=== PATIENT | male | born 1995 | race Caucasian/White ===

== ENCOUNTER 2023-03-30 21:32 | Emergency (ER) | payer BC ==
[2023-03-30] MEDS ORDERED: Bupivacaine 0.5% 10 ML VIAL ONE (21:51)
== END 2023-03-30 22:52 | disposition home or self-care (01) ==
LOC: ERS 21:32
DX: R55 Syncope and collapse (principal); S01.01XA Laceration without foreign body of scalp, initial encounter; H81.399 Other peripheral vertigo, unspecified ear; W22.8XXA Striking against or struck by other objects, initial encounter; Y93.01 Activity, walking, marching and hiking
CPT/HCPCS: 12001; 36416; 99283; J3490

== ENCOUNTER 2024-12-02 23:30 | Observation (INO) | payer BC ==
[2024-12-03 00:14] LABS: #Basophils 0.03 10x3/uL (0.0-0.2); #Eosinophils 0.03 10x3/uL (0.0-0.7); #Monocytes 0.84 10x3/uL (0.11-0.59); #Neutrophils 11.89 10x3/uL (1.40-6.50); %Basophils 0.2 % (0.0-1.0); %Eosinophils 0.2 % (0.0-10.0); %Lymphocytes 7.2 % (21.0-51.0); %Monocytes 6.1 % (0.0-10.0); %Neutrophils 85.9 % (42.0-75.0); Hematocrit 46.0 % (42.0-52.0); Hemoglobin 15.5 g/dL (14.0-18.0); Mean Corpuscular Hemoglobin 29.0 pg (27.0-31.0); Mean Corpuscular Volume 86.0 fL (78.0-98.0); Platelet Count 211 10x3/uL (130-400); Red Blood Cell (RBC) Count 5.35 mill/uL (4.70-6.10); White Blood Cell (WBC) Count 13.85 10x3/uL (4.8-10.8)
[2024-12-03 00:39] LABS: ALT (SGPT) 12 U/L (Less than 45); AST (SGOT) 16 U/L (11-34); Albumin 5.1 g/dL (3.1-4.5); Alkaline Phosphatase 62 U/L (40-110); Anion Gap 15 mmol/L (10-20); BUN (Urea Nitrogen) 9 mg/dL (8.9-20.6); Bilirubin, Total 0.8 mg/dL (0.3-1.2); Calc. Creatinine Clearance 0 mL/min (70-130); Calcium 9.6 mg/dL (7.8-10.44); Carbon Dioxide 23 mmol/L (22-29); Chloride 104 mmol/L (98-107); Globulin 2.9 g/dL (2.4-3.5); Glucose 117 mg/dL (70-105); Lipase 23 U/L (8-78); Potassium 4.0 mmol/L (3.5-5.1); Sodium 138 mmol/L (136-145)
[2024-12-03] MEDS ORDERED: diphenhydrAMINE 50 MG/ML VIAL ONE (00:54)
[2024-12-03] MEDS ORDERED: Metoclopramide HCl 10 MG (2 mL) VIAL ONE (00:55)
[2024-12-03] MEDS ORDERED: cefTRIAXone (ROCEPHIN) 1 GM VIAL ONE (01:50)
[2024-12-03] MEDS ORDERED: metroNIDAZOLE 500 MG (100 mL) BAG ONE (02:35)
[2024-12-03] MEDS ORDERED: Glucagon 1 MG/ML KIT IM PRN (02:48)
[2024-12-03] MEDS ORDERED: Dextrose 50% Abboject 50 ML SYRINGE SLOW IVP PRN (02:48)
[2024-12-03] MEDS ORDERED: Acetaminophen 325 MG TAB PO PRN (02:48)
[2024-12-03] MEDS ORDERED: Ondansetron PF 4 MG/2 ML Vial IVP PRN (02:48)
[2024-12-03 07:06] LABS: #Basophils Less than 0.03 10x3/uL (0.0-0.2); #Eosinophils Less than 0.03 10x3/uL (0.0-0.7); #Monocytes 0.82 10x3/uL (0.11-0.59); #Neutrophils 10.56 10x3/uL (1.40-6.50); %Basophils 0.1 % (0.0-1.0); %Eosinophils 0.1 % (0.0-10.0); %Lymphocytes 9.2 % (21.0-51.0); %Monocytes 6.5 % (0.0-10.0); %Neutrophils 83.6 % (42.0-75.0); Hematocrit 44.3 % (42.0-52.0); Hemoglobin 15.0 g/dL (14.0-18.0); Mean Corpuscular Hemoglobin 29.1 pg (27.0-31.0); Mean Corpuscular Volume 86.0 fL (78.0-98.0); Platelet Count 193 10x3/uL (130-400); Red Blood Cell (RBC) Count 5.15 mill/uL (4.70-6.10); White Blood Cell (WBC) Count 12.62 10x3/uL (4.8-10.8)
[2024-12-03 08:04] LABS: Carbon Dioxide 22 mmol/L (22-29); Glucose 100 mg/dL (70-105)
[2024-12-03 08:05] LABS: Anion Gap 15 mmol/L (10-20); BUN (Urea Nitrogen) 9 mg/dL (8.9-20.6); Calc. Creatinine Clearance 0 mL/min (70-130)
[2024-12-03 08:07] LABS: Calcium 9.3 mg/dL (7.8-10.44); Chloride 105 mmol/L (98-107); Potassium 3.9 mmol/L (3.5-5.1); Sodium 138 mmol/L (136-145)
[2024-12-03] MEDS ORDERED: Iopamidol-370 76% 500 ML MDV (1 ML CHARGE) ONE (11:06)
[2024-12-03] MEDS ORDERED: Ondansetron PF 4 MG/2 ML Vial ONE (12:50)
[2024-12-03] MEDS ORDERED: Rocuronium Bromide 10 MG/ML (10ML VIAL) ONE (12:50)
[2024-12-03] MEDS ORDERED: PROPOFOL 20 ML ONE (12:50)
[2024-12-03] MEDS ORDERED: fentaNYL PF 100 MCG/2 ML SYRINGE ONE ×2 (12:50→14:55)
[2024-12-03] MEDS ORDERED: Bupivacaine 0.25% HCL 30 ML VIAL ONE (12:56)
[2024-12-03] MEDS ORDERED: Lidocaine 2% 6 ML (Jelly) SYR ONE (13:04)
[2024-12-03] MEDS ORDERED: SUGAMMADEX SODIUM 200 MG/2 ML VIAL ONE (13:11)
[2024-12-03] MEDS ORDERED: PHENYLEPHRINE-NS 100 MCG/ML 10 ML SYRINGE ONE (13:28)
[2024-12-03] MEDS ORDERED: Glycopyrrolate 0.2 MG/ML 5 ML SYRINGE ONE (14:12)
[2024-12-03 16:08] VITALS: TEMP 97
[2024-12-03 17:18] VITALS: BP 125/77
== END 2024-12-03 18:21 | disposition home or self-care (01) ==
LOC: ERS 23:30 → INTOOBSV 12-03 02:27 → ERHOLD 12-03 02:27 → SURG B 12-03 04:17
PROVIDERS: ADMIT Surgery; ATTEND Surgery
PROC: 0DTJ4ZZ Resection of Appendix, Percutaneous Endoscopic Approach (ICD-10-PCS; principal; 2024-12-03)
DX: K35.80 Unspecified acute appendicitis (principal)
CPT/HCPCS: 36415; 36416; 74177; 80053; 83690; 85025; 88304; 96365; 96367; 96375; A4649; J0169; J0665; J0696; J1100; J1200; J2250; J2270; J2405; J2543; J2704; J2765; J7030; Q9967